=== PATIENT | male | born 1985 | race Caucasian/White ===

== ENCOUNTER 2018-07-10 20:41 | Emergency (ER) | payer BC ==
--- NOTE | 2018-07-10 20:45 | PDOC ---
History of Present Illness - General History Source: Patient Exam Limitations: No Limitations - History of Present Illness Initial Comments: 07/10/18 21:13 The patient is a 33 year old male here today for evaluation of abdominal pain. The patient reports that his pain began at approximately 4:30 today and began in his left flank and has since moved to his left lower quadrant. He notes associated chills and diaphoresis. The patient reports that his current abdominal pain is similar to the pain he experienced in the past due to kidney stones but is worse this time. He reports taking a warm shower which provided no relief to his symptoms. Patient denies headache, lightheadedness. Denies fever. Denies chest pain, shortness of breath. Denies nausea, vomiting, diarrhea, abdominal pain. PAST MEDICAL HISTORY: bilateral kidney stones (last stone was one year ago), ulcer PAST SURGICAL HISTORY: no significant history FAMILY HISTORY: no pertinent history SOCIAL HISTORY: Pt lives with family and is employed. MEDICATIONS: reviewed ALLERGIES: As per nursing notes General: +chills. No fevers, no weakness, no weight loss HEENT: No change in vision. No sore throat,. No ear pain CardioVascular: No chest pain or shortness of breath Respiratory:No cough, or wheezing. Gastrointestinal: +lower left quadrant and left flank pain. no nausea, vomiting , diarrhea or constipation, No rectal bleeding Genitourinary: No dysuria, hematuria, or frequency Musculoskeletal: No joint or muscle pain or swelling Neurologic: No headache, vertigo, dizziness or loss of consciousness Psychiatric: nor depression Skin: No rashes or easy bruising Endocrine: no increased thirst or abnormal weight change Allergic: no skin or latex allergy All other systems reviewed and normal GENERAL: The patient is awake, alert, and fully oriented, in no acute distress. HEAD: Normal with no signs of trauma. EYES: Pupils equal, round and reactive to light, extraocular movements intact, sclera anicteric, conjunctiva clear. EXTREMITIES: Normal range of motion, no edema. BACK: +left flank tenderness to palpation. No CVA tenderness NEUROLOGICAL: Normal speech, normal gait. PSYCH: Normal mood, normal affect. SKIN: Warm, Dry, normal turgor, no rashes or lesions noted. <Brian Banks - Last Filed: 07/10/18 21:12> - General History Source: Patient Exam Limitations: No Limitations - History of Present Illness Initial Comments: 07/10/18 21:11 A portion of this note was documented by scribe services under my direction. I have reviewed the details of the note, within reason, and agree with the documentation with the following case summary and management plan written by me. Patient treated in the ED. Nursing notes are reviewed and incorporated into the medical decision-making. Vital signs reviewed. Assessment plan: This is a 33-year-old male who has history of multiple renal stones in the past. Patient last past one about a year ago. Patient comes in complaining of 1 day of left flank pain radiating to his left lower quadrant. Patient appears very uncomfortable We'll medicate patient for pain and initiate workup including CBC, comp, UA and CT of abdomen and pelvis to image the stone. 07/10/18 22:42 Reevaluation: Patient is sleeping comfortable after medication. Patient's CAT scan showed a 3 x 6 mm stone with a moderate amount of hydronephrosis. Patient had prescription sent to the pharmacy for Percocet and Zofran. Patient has a urologist he will call in the morning and follow-up with Patient had an 18,000 white count however no fever and no evidence of an infection in his urine. I think the details of why, was primarily secondary to the degree of pain and discomfort that he was having. Patient discharged home. <Jorge Marie I - Last Filed: 07/10/18 22:46> - General Chief Complaint: Pain, Acute Stated Complaint: LT FLANK PAIN Time Seen by Provider: 07/10/18 20:45 Past History <Brian Banks - Last Filed: 07/10/18 21:12> - Past Medical History Asthma: Yes GI Disorders: Yes (DUODENAL ULCER) Disorders: Yes (KIDNEY STONES) - Suicide/Smoking/Psychosocial Hx Smoking History: Current some day smoker Have you smoked in the past 12 months: Yes <Jorge Marie Last Filed: 07/10/18 22:46> - Past Medical History Allergies/Adverse Reactions: Allergies Allergy/AdvReac Type Severity Reaction Status Date / Time No Known Allergies Allergy Verified 08/23/15 09:35 Home Medications: Ambulatory Orders Ondansetron [Zofran Odt -] 4 mg SL TID #12 od.tablet 07/10/18 Oxycodone HCl/Acetaminophen [Percocet 5-325 mg Tablet] 1 - 2 tab PO Q4H #20 tablet MDD 8 07/10/18 *Physical Exam - Vital Signs Last Vital Signs Temp Pulse Resp BP Pulse Ox 97.6 F 56 L 18 135/77 100 07/10/18 20:41 07/10/18 20:41 07/10/18 20:41 07/10/18 20:41 07/10/18 20:41 <Brian Banks - Last Filed: 07/10/18 21:12> Moderate Sedation - Procedure Monitoring Vital Signs: Procedure Monitoring Vital Signs Temperature 97.6 F 07/10/18 20:41 Pulse Rate 56 L 07/10/18 20:41 Respiratory Rate 18 07/10/18 20:41 Blood Pressure 135/77 07/10/18 20:41 O2 Sat by Pulse Oximetry (%) 100 07/10/18 20:41 <Brian Banks - Last Filed: 07/10/18 21:12> ED Treatment Course - LABORATORY CBC & Chemistry Diagram: 07/10/18 21:15 07/10/18 21:15 <Jorge Marie I - Last Filed: 07/10/18 22:46> *DC/Admit/Observation/Transfer - Attestations Scribe Attestion: 07/10/18 21:13 Documentation prepared by CHARLINE Pate, acting as medical center representative for Jorge Marie MD. <Brian Banks - Last Filed: 07/10/18 21:12> <Jorge Marie I - Last Filed: 07/10/18 22:46> Diagnosis at time of Disposition: Kidney stone on left side - Discharge Dispostion Disposition: HOME Condition at time of disposition: Stable - Prescriptions Prescriptions: Ondansetron [Zofran Odt -] 4 mg SL TID #12 od.tablet Oxycodone HCl/Acetaminophen [Percocet 5-325 mg Tablet] 1 - 2 tab PO Q4H #20 tablet MDD 8 - Patient Instructions Additional Instructions: For the pain take ibuprofen 3 tablets 3 times a day with food don't take on an empty stomach. If you need something stronger you can take Percocet one tablet as often as every 4-6 hours if needed, If you develop nausea take Zofran 1 tablet as often as every 6-8 hours if needed , Stay well-hydrated and drink plenty of fluids, Call your urologist in the morning and get an appointment to follow up as soon as possible as it is very possible the stone will be too large to pass a need lithotripsy, Return to the emergency department immediately with ANY new, persistent or worsening symptoms. Continue any medications as previously prescribed by your physician. You should follow up with your primary doctor as soon as possible regarding today's emergency department visit. . Please make sure your doctor reviews the results of your emergency evaluation. Thank you for coming to the Emergency Department today for your care. It was a pleasure to see you today. Please note that your evaluation is INCOMPLETE until you follow-up with your doctor.
[2018-07-10] MEDS ORDERED: SODIUM CHLORIDE 1,000 ML IV ONE (21:04)
[2018-07-10] MEDS ORDERED: KETOROLAC TROMETHAMINE 30 MG/1 ML VIAL IVPUSH ONE (21:04)
[2018-07-10] MEDS ORDERED: ONDANSETRON 4 MG/2 ML VIAL IVPB ONE (21:04)
[2018-07-10] MEDS ORDERED: morphine CARPU-JECT 4 MG/1 ML DISP.SYRIN IVPUSH ONE (21:04)
[2018-07-10 21:07] VITALS: BP 135/77; PULSE 56; TEMP 97.6; BMI 30.9
[2018-07-10] MEDS ORDERED: ONDANSETRON 4 MG/2 ML VIAL ONE (21:12)
[2018-07-10] MEDS ORDERED: KETOROLAC TROMETHAMINE 30 MG/1 ML VIAL ONE (21:12)
[2018-07-10] MEDS ORDERED: morphine SULFATE 4 MG/ML VIAL ONE (21:12)
[2018-07-10 21:27] LABS: BASO % 1.5 % (0-2.0); EOS % 0.1 % (0-4.5); HEMATOCRIT 44.6 % (35.4-49); HEMOGLOBIN 14.8 GM/dl (11.7-16.9); LYMPH % 9.3 % (8-40); MCH 30.7 pg (25.7-33.7); MCHC 33.1 g/dl (32.0-35.9); MEAN CELL VOLUME 92.6 fl (80-96); MEAN PLT VOLUME 10.2 fl (7.5-11.1); NEUT % 85.1 % (42.8-82.8); PLATELET COUNT 271 K/MM3 (134-434); RBC 4.81 M/mm3 (4.00-5.60); RDW 13.6 % (11.9-15.9); WHITE BLOOD COUNT 18.3 K/mm3 (4.0-10.8)
[2018-07-10 21:44] LABS: ALBUMIN 4.8 g/dl (3.5-5.0); ALK PHOS 76 U/L (32-92); ANION GAP 12 MMOL/L (8-16); BILIRUBIN,TOTAL 0.8 mg/dl (0.2-1.0); BLOOD UREA NITROGEN 21 mg/dl (7-18); CALCIUM 9.2 mg/dl (8.4-10.2); CHLORIDE 104 mmol/L (98-107); CO2 20 mmol/L (22-28); CREATININE 1.3 mg/dl (0.6-1.3); GLUCOSE,RANDOM 145 mg/dl (74-106); POTASSIUM 3.4 mmol/L (3.5-5.1); SGOT/AST 28 U/L (10-42); SGPT/ALT 34 U/L (10-40); SODIUM 136 mmol/L (136-145); TOT PROT 7.7 g/dl (6.4-8.3)
[2018-07-10 21:55] LABS: URINE APPEARANCE Slightly; URINE BILIRUBIN Negative (NEGATIVE); URINE COLOR Yellow; URINE GLUCOSE (UA) Negative (NEGATIVE); URINE KETONE 1+ (NEGATIVE); URINE LEUK ESTERASE Negative (NEGATIVE); URINE NITRITE Negative (NEGATIVE); URINE PROTEIN 2+ (NEGATIVE); URINE UROBILINOGEN 0.2 (0.2-1.0)
[2018-07-10 22:37] LABS: CALCIUM OXALATE CRYSTALS FEW /hpf (NONE SEEN); URINE BACTERIA 2+ /hpf (NEGATIVE)
[2018-07-10] MEDS ORDERED: ONDANSETRON *ODT* 4 MG TABLET ONE (22:42)
== END 2018-07-10 22:45 | disposition home or self-care (01) ==
LOC: FER 20:41
PROC: 3E0333Z Introduction of Anti-inflammatory into Peripheral Vein, Percutaneous Approach (ICD-10-PCS; principal; 2018-07-10)
PROC: 3E033NZ Introduction of Analgesics, Hypnotics, Sedatives into Peripheral Vein, Percutaneous Approach (ICD-10-PCS; 2018-07-10)
PROC: 3E033GC Introduction of Other Therapeutic Substance into Peripheral Vein, Percutaneous Approach (ICD-10-PCS; 2018-07-10)
PROC: 3E0337Z Introduction of Electrolytic and Water Balance Substance into Peripheral Vein, Percutaneous Approach (ICD-10-PCS; 2018-07-10)
DX: N20.0 Calculus of kidney (principal); F17.210 Nicotine dependence, cigarettes, uncomplicated; J45.909 Unspecified asthma, uncomplicated
CPT/HCPCS: 36415; 74176; 80053; 81003; 81015; 85025; 99282-25; J7030

== ENCOUNTER 2019-08-26 17:04 | Emergency (ER) | payer BC ==
[2019-08-26 17:16] VITALS: BP 137/75; PULSE 56; TEMP 97.6; BMI 30.8
[2019-08-26] MEDS ORDERED: ONDANSETRON 4 MG/2 ML VIAL IVPB ONE (17:19)
[2019-08-26] MEDS ORDERED: KETOROLAC TROMETHAMINE 30 MG/1 ML VIAL IVPUSH ONE (17:19)
[2019-08-26] MEDS ORDERED: SODIUM CHLORIDE 1,000 ML IV STA (17:19)
[2019-08-26] MEDS ORDERED: TAMSULOSIN HCL 0.4 MG CAP PO ONE (17:20)
[2019-08-26] MEDS ORDERED: ONDANSETRON 4 MG/2 ML VIAL ONE (17:24)
[2019-08-26] MEDS ORDERED: KETOROLAC TROMETHAMINE 30 MG/1 ML VIAL ONE (17:24)
[2019-08-26] MEDS ORDERED: TAMSULOSIN HCL 0.4 MG CAP ONE (17:26)
[2019-08-26 17:36] LABS: BASO % 0.4 % (0-2.0); HEMOGLOBIN 15.2 GM/dl (11.7-16.9); LYMPH % 10.8 % (8-40); MCH 31.6 pg (25.7-33.7); MCHC 33.9 g/dl (32.0-35.9); MEAN CELL VOLUME 93.3 fl (80-96); MEAN PLT VOLUME 9.6 fl (7.5-11.1); MONO % 6.6 % (3.8-10.2); NEUT % 82.2 % (42.8-82.8); PLATELET COUNT 234 K/MM3 (134-434); RBC 4.82 M/mm3 (4.00-5.60); RDW 13.1 % (11.9-15.9); WHITE BLOOD COUNT 18.6 K/mm3 (4.0-10.8)
[2019-08-26 17:45] LABS: BILIRUBIN,TOTAL 1.1 mg/dl (0.2-1); CALCIUM 9.6 mg/dl (8.5-10); CREATININE 1.3 mg/dl (0.55-1.3); POTASSIUM 3.8 mmol/L (3.5-5.1); TOT PROT 7.8 g/dl (6.4-8.2)
--- NOTE | 2019-08-26 20:09 | PDOC ---
Documentation entered by Kristine Becker SCRIBE, acting as scribe for Demetrius Han MD. Demetrius Han MD: This documentation has been prepared by the [email or web address] canas Lincy, SCRIBE, under my direction and personally reviewed by me in its entirety. I confirm that the documentation accurately reflects all work, treatment, procedures, and medical decision making performed by me. History of Present Illness - General Chief Complaint: Pain Stated Complaint: POSSIBLE KIDNEY STONE LEFT FLANK PAIN WITH VOMI Time Seen by Provider: 08/26/19 17:18 History Source: Patient Exam Limitations: No Limitations - History of Present Illness Initial Comments: 08/26/19 17:52 The patient is a 34-year-old male with a past medical history significant for Nephrolithiasis who presents to the emergency department with L. flank pain since 11:30 am today. The patient reports taking Tylenol for the pain at noon, without relief. The patient reports associated symptoms of decreased urine output since this afternoon. The patient reports the pain is similar to a prior episode of kidney stones a year ago to the same side, was seen at the ER. The patient reports the pain subsided with pain medication and was discharged home. Denies prior surgery. Allergies: NKA Social history: occasional marijuana use, no other drug use. Review of system: CONSTITUTIONAL: Absent: fever, chills, diaphoresis, generalized weakness, malaise, loss of appetite HEENT: Absent: rhinorrhea, nasal congestion, throat pain, throat swelling, difficulty swallowing, mouth swelling, ear pain, eye pain, visual Changes CARDIOVASCULAR: Absent: chest pain, syncope, palpitations, irregular heart rate, lightheadedness , peripheral edema RESPIRATORY: Absent: cough, shortness of breath, dyspnea with exertion, orthopnea, wheezing, stridor, hemoptysis GASTROINTESTINAL: +left flank pain. Absent: abdominal pain, abdominal distension, nausea, vomiting, diarrhea, constipation, melena, hematochezia GENITOURINARY: +decreased urine output. Absent: dysuria, frequency, urgency, hematuria, genital pain MUSCULOSKELETAL: Absent: myalgia, arthralgia, joint swelling SKIN: Absent: rash, itching, pallor HEMATOLOGIC/IMMUNOLOGIC: Absent: easy bleeding, easy bruising, lymphadenopathy, frequent infections NEUROLOGIC: Absent: headache, focal weakness or paresthesias, dizziness, unsteady gait, seizure, mental status changes, bladder or bowel incontinence PSYCHIATRIC: Absent: anxiety, depression, suicidal or homicidal ideation, hallucinations. Physical exam: GENERAL: Well developed, well nourished. Awake and alert. No acute distress. HEENT: Normocephalic, atraumatic. PERRLA, EOMI. No conjunctival pallor. Sclera are non- icteric. Moist mucous membranes. Oropharynx is clear. NECK: Supple. Full ROM. No JVD. CARDIOVASCULAR: Regular rate and rhythm. No murmurs, rubs, or gallops. PULMONARY: No evidence of respiratory distress. Lungs clear to auscultation bilaterally. No wheezing, rales or rhonchi. ABDOMINAL: nondistended, normal bowel sounds, soft without masses, tenderness or organomegaly. No CVA tenderness. No rebound or guarding. bowel sounds. Genitalia: no masses or tenderness in the scrotum MUSCULOSKELETAL Normal range of motion at all joints. No bony deformities or tenderness. EXTREMITIES: No cyanosis. No clubbing. No edema. SKIN: Warm and dry. Normal capillary refill. No rashes. No jaundice. NEUROLOGICAL: Alert, awake, appropriate. Cranial nerves 2-12 intact. Gait is normal without ataxia. PSYCHIATRIC: Cooperative. Good eye contact. Appropriate mood and affect. Past History - Past Medical History Allergies/Adverse Reactions: Allergies Allergy/AdvReac Type Severity Reaction Status Date / Time No Known Allergies Allergy Verified 08/26/19 17:18 Home Medications: Ambulatory Orders Acetaminophen W/ Codeine #3 [Tylenol # 3] 2 combo PO Q4H PRN #20 tablet MDD 6 Tamsulosin HCl [Flomax] 0.4 mg PO DAILY #5 cap.er.24h 08/26/19 Asthma: Yes COPD: No GI Disorders: Yes (DUODENAL ULCER) Disorders: Yes (KIDNEY STONES) - Psycho Social/Smoking Cessation Hx Smoking History: Never smoked Have you smoked in the past 12 months: Yes Information on smoking cessation initiated: No Hx Alcohol Use: No Drug/Substance Use Hx: Yes (MARIJUANA) *Physical Exam - Vital Signs Last Vital Signs Temp Pulse Resp BP Pulse Ox 97.6 F 56 L 18 137/75 98 08/26/19 17:06 08/26/19 17:06 08/26/19 17:06 08/26/19 17:06 08/26/19 17:06 ED Treatment Course - LABORATORY CBC & Chemistry Diagram: 08/26/19 17:20 08/26/19 17:20 - ADDITIONAL ORDERS Additional order review: Laboratory Results 08/26/19 08/26/19 17:20 17:05 Sodium 136 Potassium 3.8 Chloride 99 Carbon Dioxide 25 Anion Gap 12 BUN 19.0 H Creatinine 1.3 Est GFR (CKD-EPI)AfAm 83.68 Est GFR (CKD-EPI)NonAf 72.20 Random Glucose 126 H Calcium 9.6 Total Bilirubin 1.1 H AST 29 ALT 49 Alkaline Phosphatase 74 Total Protein 7.8 Albumin 5.0 Urine Color Yellow Urine Appearance Slightly Urine pH 5.5 Urine Protein Trace Urine Glucose (UA) Negative Urine Ketones Negative Urine Blood 3+ H Urine Nitrite Negative Urine Bilirubin Negative Urine Urobilinogen 0.2 Ur Leukocyte Esterase Negative Urine RBC 20-30 Urine WBC 2-5 Urine Bacteria Few 08/26/19 17:20 RBC 4.82 MCV 93.3 MCHC 33.9 RDW 13.1 MPV 9.6 Neutrophils % 82.2 Lymphocytes % 10.8 Monocytes % 6.6 Eosinophils % 0.0 D Basophils % 0.4 - Medications Given in the ED: ED Medications Discontinued Medications Generic Name Dose Route Start Last Admin Trade Name Freq PRN Reason Stop Dose Admin Sodium Chloride 1,000 mls @ 1,000 mls/hr 08/26/19 17:19 08/26/19 17:25 Normal Saline - IV 08/26/19 18:18 1,000 mls/hr ASDIR STA Administration Ketorolac Tromethamine 30 mg 08/26/19 17:19 08/26/19 17:32 Toradol Injection - IVPUSH 08/26/19 17:20 30 mg ONCE ONE Administration Ondansetron HCl 4 mg 08/26/19 17:19 08/26/19 17:25 Zofran Injection IVPB 08/26/19 17:20 4 mg ONCE ONE Administration Tamsulosin HCl 0.4 mg 08/26/19 17:20 08/26/19 17:32 Flomax - PO 08/26/19 17:21 0.4 mg ONCE ONE Administration Medical Decision Making - Medical Decision Making 08/26/19 18:21 Pain is much improved following treatment. No further nausea or vomiting. Resting comfortably White blood count 18.6. Remainder of labs without significant abnormalities. Urine culture ordered, but the elevated white count is likely secondary to pain/ stress. 08/26/19 20:08 Fully ambulatory and in no significant pain or other distress at discharge to follow-up as directed. Return to ER if pain is severe and unresponsive to prescribed medication. Discharge - Discharge Information Problems reviewed: Yes Clinical Impression/Diagnosis: Renal colic on left side Condition: Improved Disposition: HOME - Admission No - Additional Discharge Information Prescriptions: Acetaminophen W/ Codeine #3 [Tylenol # 3] 2 combo PO Q4H PRN #20 tablet MDD 6 PRN Reason: Pain Tamsulosin HCl [Flomax] 0.4 mg PO DAILY #5 cap.er.24h - Follow up/Referral Referrals: Prieto Mckenna MD [Staff Physician] - 1 week - Patient Discharge Instructions Patient Printed Discharge Instructions: DI for Kidney Stones Additional Instructions: Drink lots of fluids. Pain medication as needed. Return to hospital if pain is uncontrolled, otherwise follow-up with urologist as directed - Post Discharge Activity Work/Back to School Note: Back to Work
== END 2019-08-26 20:04 | disposition home or self-care (01) ==
LOC: FER 17:04
PROC: 3E0333Z Introduction of Anti-inflammatory into Peripheral Vein, Percutaneous Approach (ICD-10-PCS; principal; 2019-08-26)
PROC: 3E033GC Introduction of Other Therapeutic Substance into Peripheral Vein, Percutaneous Approach (ICD-10-PCS; 2019-08-26)
DX: N20.0 Calculus of kidney (principal); J45.909 Unspecified asthma, uncomplicated; K92.9 Disease of digestive system, unspecified
CPT/HCPCS: 36415; 80053; 81003; 81015; 85025; 87086; 99284-25; J7030